=== PATIENT | female | born 1960 | race Caucasian/White ===

== ENCOUNTER → 2020-09-04 | Outpatient (REF) ==
[~2020-09-04] MED LIST: ACET65TA OR; ASPI81TA83 OR; Desyrel PO; LEVO150T OR; LIPI20TA OR; MULTIVIT PO; NEUR100C OR; NEXI1CAP3 OR; VIT D 2000 PO; phentermine PO
--- NOTE | 2020-09-04 14:37 | REP ---
INDICATION: ARTHRITIS. COMPARISON: None. TECHNIQUE: Four views of the right foot are provided. FINDINGS: Four views of the right foot demonstrate plantar and Achilles calcaneal spurring. There is mild osteoarthritis at the 1st MTP joint with spur formation and joint space narrowing.. Bones, joints, and soft tissues are otherwise unremarkable.. No fracture or subluxation is seen.. IMPRESSION: Heel spurs and mild 1st MTP joint osteoarthritis. No acute bony abnormality.. <Electronically signed by Aaron Larose > 09/04/20 [id number]
== END ==
LOC: M PLAIMG 13:21
PROVIDERS: ATTEND Internal Medicine
DX: M19.90 Unspecified osteoarthritis, unspecified site (principal)